=== PATIENT | female | born 2005 | race Caucasian/White ===

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

== ENCOUNTER → 2024-03-23 15:14 | Outpatient (CLI) | payer OTHER, SELFPAY ==
[2024-03-23 17:25] LABS: Add Manual Diff / Slide Review NO; Basophils Absolute Auto 200 /uL (0-100); Eosinophils Absolute Auto 800 /uL (0-450); Eosinophils Percent Auto 6.9 % (2-4); Hematocrit 36.4 % (36-46); Hemoglobin 12.3 g/dL (12.0-16.0); Lymphocytes Absolute Auto 2300 /uL (1100-4500); Lymphocytes Percent Auto 20.2 % (25-40); Mean Corpuscular HGB Conc 33.9 % (30-36); Mean Corpuscular Hemoglobin 24.8 PG (26-34); Mean Corpuscular Volume 73.3 fL (80-100); Monocytes Absolute Auto 1400 /uL (0-900); Monocytes Percent Auto 12.6 % (3-14); Neutrophils Absolute Auto 6600 /uL (1500-7000); Neutrophils Percent Auto 58.3 % (50-75); Platelet Count 853 X10^3/uL (150-400); Red Blood Cell Count 4.97 X10^6/uL (4.0-5.2); Red Cell Distribution Width 14.6 % (11.6-14.8); White Blood Cell Count 11.3 X10^3/uL (4.5-11.0)
[2024-03-23 17:50] LABS: RBC Morphology Normal Morphology
[2024-03-23 17:51] LABS: Iron 29 ug/dL (37-170)
[2024-03-23 17:53] LABS: Erythrocyte Sedimentation Rate 7 MM/HR (0-20)
[2024-03-23 17:55] LABS: Alanine Aminotransferase 11 IU/L (<35); Albumin 4.8 g/dL (3.5-5.0); Albumin Globulin Ratio 1.7 (1.0-2.8); Alkaline Phosphatase 72 U/L (38-126); Aspartate Aminotransferase 22 IU/L (14-36); BUN Creatinine Ratio 18.5 (6-22); Bilirubin Total 1.2 mg/dL (0.2-1.3); Blood Urea Nitrogen 15 mg/dL (7-17); C-Reactive Protein Quant < 0.5 mg/dL (<1.0); Calcium 9.4 mg/dL (8.4-10.2); Carbon Dioxide 25 mmol/L (22-32); Chloride 105 mmol/L (98-107); Estimated Glomerular Filt Rate > 60 mL/min (>60); Globulin 2.8 g/dL (1.7-4.1); Glucose 82 mg/dL (70-100); HEMOLYSIS < 15 (0-50); Potassium 3.7 mmol/L (3.4-5.1); Sodium 138 mmol/L (137-145); Total Protein 7.6 g/dL (6.3-8.2)
[2024-03-23 18:04] LABS: Total Iron Binding Capacity 471 ug/dL (265-497)
[2024-03-23 18:25] LABS: Vitamin D 25 Hydroxy (D3) 44.9 ng/mL (30.0-100.0)
[2024-03-23 18:27] LABS: Ferritin 4 ng/mL (6-137)
== END ==
PROVIDERS: Family Provider Family Medicine; PCP Family Medicine; Referring Provider Naturopath; Visit Provider Naturopath
DX: R10.9 Unspecified abdominal pain (principal)
CPT/HCPCS: 36415; 80053; 82306; 82728; 83540; 83550; 85025; 85651; 86140

== ENCOUNTER → 2024-03-24 09:24 | Outpatient (CLI) | payer OTHER, SELFPAY ==
[2024-03-24 14:48] LABS: Campylobacter Not Detected (Not Detect); Clostridium difficile toxin AB Not Detected (Not Detect); Plesiomonsa shigelloides Not Detected (Not Detect); Salmonella Not Detected (Not Detect)
[2024-03-24 14:49] LABS: Adenovirus F 40/41 Not Detected (Not Detect); Astrovirus Not Detected (Not Detect); Cryptosporidium Not Detected (Not Detect); Cyclospora cayetanensis Not Detected (Not Detect); Entamoeba histolytica Not Detected (Not Detect); Enteroaggregative E.coli Not Detected (Not Detect); Enteropathogenic E.coli Not Detected (Not Detect); Enterotoxigenic E.coli It/st Not Detected (Not Detect); Giardia lamblia Not Detected (Not Detect); Norovirus GI/GII Not Detected (Not Detect); Rotavirus A Not Detected (Not Detect); Sapovirus Not Detected (Not Detect); Shiga-like toxin-prod E.coli Not Detected (Not Detect); Shigella/Enteroinvasive E.coli Not Detected (Not Detect); Vibrio Not Detected (Not Detect); Vibrio cholerae Not Detected (Not Detect); Yersinia enterocolitica Not Detected (Not Detect)
[2024-03-26 11:15] LABS: Fats, Neutral Normal (.); Fats, Total Normal (.); pH, Stool 6.5 (7.0-7.5)
[2024-03-30 14:43] LABS: Calprotectin, Stool 2420 ug/g (0-120)
[2024-03-31 13:13] LABS: Pancreatic Elastase, Fecal 568 (>200)
== END ==
PROVIDERS: Family Provider Family Medicine; PCP Family Medicine; Referring Provider Naturopath; Visit Provider Naturopath
DX: R10.9 Unspecified abdominal pain (principal); R14.0 Abdominal distension (gaseous); R19.7 Diarrhea, unspecified; K92.1 Melena; R11.0 Nausea; R63.0 Anorexia; D72.829 Elevated white blood cell count, unspecified; D69.6 Thrombocytopenia, unspecified; D64.9 Anemia, unspecified; E61.1 Iron deficiency; E55.9 Vitamin D deficiency, unspecified; K51.90 Ulcerative colitis, unspecified, without complications; D58.0 Hereditary spherocytosis
CPT/HCPCS: 82656; 82705; 83993; 87102; 87177; 87507

== ENCOUNTER → 2024-06-24 14:31 | Outpatient (CLI) | payer OTHER, SELFPAY ==
--- NOTE | 2024-06-24 14:35 | DI.RAD.S_ITS ---
PROCEDURE: XR FOOT LT MIN 3V INDICATIONS: SOFT TISSUE MASS TECHNIQUE: 3 views of the foot were acquired. COMPARISON: None. FINDINGS: Bones: There are no osseous abnormalities Joints: The joint spaces are normal in width and alignment without arthritic change. Soft tissues: There is subtle dorsal soft tissue swelling overlying the cuneiform region on lateral view. This is nonspecific. IMPRESSION: Focal dorsal soft tissue swelling over the cuneiform. Suggest MRI for more specific evaluation Dictated by: Remi Sorenson M.D. on 06/25/2024 at 13:21 Approved by: Remi Sorenson M.D. on 06/25/2024 at 13:22
== END ==
LOC: RAD 14:34
PROVIDERS: Family Provider Family Medicine; PCP Family Medicine; Referring Provider Podiatrist Foot & Ankle Surgery; Visit Provider Podiatrist Foot & Ankle Surgery
DX: D48.118 Desmoid tumor of other site (principal); M79.89 Other specified soft tissue disorders
CPT/HCPCS: 73630

== ENCOUNTER → 2024-06-28 13:58 | Outpatient (CLI) | payer OTHER, SELFPAY ==
--- NOTE | 2024-06-28 14:01 | DI.MRI.S_ITS ---
PROCEDURE: MRFOOT LT WO CON INDICATIONS: specified neoplasm uncertain behavior conn-soft TECHNIQUE: Multiphasic, multisequence MRI of the forefoot was performed, without intravenous contrast administration. COMPARISON: None. FINDINGS: Image quality: Excellent. Bones and joints: No bone marrow contusions or metatarsal stress fractures. The sesamoid bones appear in expected positions, without internal edema. No metatarsophalangeal joint degeneration. No intraosseous lesions. Soft tissues: The visualized plantar foot muscles demonstrate normal signal and bulk. Visualized flexor and extensor tendons appear intact, without tenosynovitis. The distal insertions of the peroneus brevis and longus tendons appear intact. The principal Lisfranc ligament appears intact. There is an oval ganglion cyst in soft tissue over dorsal aspect of midfoot at the level of 3rd and 2nd metatarsal bases and measures up to 1.8 x 1.1 x 0.7 cm in size series 5, image 16 and series 7, image 9 . No gross solid appearing soft tissue lesion is noted. Sagittal images demonstrate no evidence for plantar plate tears. IMPRESSION: 1. Finding likely represent 1.8 x 1.1 x 0.7 cm benign ganglion cyst over dorsal aspect of midfoot adjacent to dorsal aspect of 2nd and 3rd metatarsal bases and situated between extensor hallucis longus and extensor digitorum longus tendons. No solid mass is seen. No adjacent tendon or ligament involvement is noted. 2. No marrow signal abnormality. No suspicious intraosseous lesion. No fracture or dislocation. Dictated by: Stuart Kumar M.D. on 06/29/2024 at 14:36 Approved by: Stuart Kumar M.D. on 06/29/2024 at 14:41
== END ==
LOC: MRI 13:59
PROVIDERS: Family Provider Family Medicine; PCP Family Medicine; Referring Provider Podiatrist Foot & Ankle Surgery; Visit Provider Podiatrist Foot & Ankle Surgery
DX: D48.19 Other specified neoplasm of uncertain behavior of connective and other soft tissue (principal)
CPT/HCPCS: 73718

== ENCOUNTER 2024-07-02 13:50 | Emergency (ER) | payer OTHER, SELFPAY ==
[2024-07-02 13:54] VITALS: BP 119/69; PULSE 80; RESP 18; TEMP 36.8; O2SAT 100; BMI 16.2
[2024-07-02] MEDS: PANTOPRAZOLE 40 MG VIAL 80 MG IV (14:36)
[2024-07-02] MEDS: ONDANSETRON 4 MG/2 ML INJ IV (14:36)
[2024-07-02 14:53] VITALS: BP 114/66; PULSE 73; RESP 18; O2SAT 100
[2024-07-02 14:57] LABS: Add Manual Diff / Slide Review NO; Basophils Absolute Auto 300 /uL (0-100); Basophils Percent Auto 4.4 % (0-2); Eosinophils Absolute Auto 900 /uL (0-450); Eosinophils Percent Auto 13.1 % (2-4); Hematocrit 35.1 % (36-46); Hemoglobin 11.8 g/dL (12.0-16.0); Lymphocytes Absolute Auto 1800 /uL (1100-4500); Lymphocytes Percent Auto 24.3 % (25-40); Mean Corpuscular HGB Conc 33.5 % (30-36); Mean Corpuscular Hemoglobin 23.9 PG (26-34); Mean Corpuscular Volume 71.3 fL (80-100); Monocytes Absolute Auto 1100 /uL (0-900); Monocytes Percent Auto 14.6 % (3-14); Neutrophils Absolute Auto 3200 /uL (1500-7000); Neutrophils Percent Auto 43.6 % (50-75); Red Blood Cell Count 4.93 X10^6/uL (4.0-5.2); Red Cell Distribution Width 15.8 % (11.6-14.8); White Blood Cell Count 7.2 X10^3/uL (4.5-11.0)
[2024-07-02 15:02] LABS: Platelet Count 946 X10^3/uL (150-400)
[2024-07-02 15:05] LABS: Prothrombin Time 11.7 SECONDS (9.4-12.5)
[2024-07-02 15:07] LABS: PTT Partial Thromboplastin Tim 34 SECONDS (25.1-36.5)
[2024-07-02 15:09] LABS: Alanine Aminotransferase 10 IU/L (<35); Albumin 4.8 g/dL (3.5-5.0); Albumin Globulin Ratio 1.5 (1.0-2.8); Alkaline Phosphatase 78 U/L (38-126); Aspartate Aminotransferase 21 IU/L (14-36); BUN Creatinine Ratio 14.5 (6-22); Bilirubin Total 1.4 mg/dL (0.2-1.3); Blood Urea Nitrogen 11 mg/dL (7-17); Calcium 9.7 mg/dL (8.4-10.2); Carbon Dioxide 25 mmol/L (22-32); Chloride 105 mmol/L (98-107); Estimated Glomerular Filt Rate > 60 mL/min (>60); Globulin 3.3 g/dL (1.7-4.1); Glucose 89 mg/dL (70-100); HEMOLYSIS < 15 (0-50); Potassium 3.8 mmol/L (3.4-5.1); Sodium 140 mmol/L (137-145); Total Protein 8.1 g/dL (6.3-8.2)
[2024-07-02 15:40] LABS: Platelet Estimate Increased on smear; RBC Morphology Normal Morphology
[2024-07-02 15:44] LABS: Ferritin 4 ng/mL (6-137)
--- NOTE | 2024-07-02 15:58 | ED_ITS ---
HPI - GI Bleed <Danielle Cisneros PA-C - Last Filed: 07/02/24 17:24> General Chief complaint: GI Bleed Stated complaint: dizzy, nausea hx of ulcerative colitis Time Seen by Provider: 07/02/24 15:28 Source: patient Mode of arrival: Ambulatory Related Data Previous Rx's Medication Instructions Recorded Iontophoresis machine #1 ea 08/15/21 ondansetron 4 mg disintegrating 4 mg PO Q8H PRN nausea and 03/19/24 tablet vomiting #30 tabs Allergies Allergy/AdvReac Type Severity Reaction Status Date / Time amoxicillin [AMOXICILLIN] Allergy Mild RASH Verified 03/19/24 12:00 Review of Systems <Danielle Cisneros PA-C - Last Filed: 07/02/24 17:24> Review of Systems Narrative: Negative except as above Gastrointestinal Comments: Nausea, abdominal cramping prior to bowel movements, frequent bowel movements, with blood. History of UC, multiple history of flares. Patient History <Danielle Cisneros PA-C - Last Filed: 07/02/24 17:24> Medical History Thrombocytosis Mild depression Pyelonephritis Social History Smoking Status: Never smoker Smoking Status: Never smoker Substance Use Type: does not use Exam <Danielle iCsneros PA-C - Last Filed: 07/02/24 17:24> Initial Vital Signs Initial Vital Signs: Vital Signs Temperature 98.3 F 07/02/24 13:54 Pulse Rate 80 07/02/24 13:54 Respiratory Rate 18 07/02/24 13:54 Blood Pressure 119/69 07/02/24 13:54 Pulse Oximetry 100 07/02/24 13:54 Oxygen Delivery Method Room Air 07/02/24 13:54 Negative except as above Const General: cooperative, well groomed, ill appearing and other (Thin 19-year-old female appears to not feel well) Eyes General: Yes appearance normal, both eyes and all related structures Pupils: PERRL EOM: EOM intact bilaterally Resp Effort & Inspection: normal respiratory effort, able to speak in complete sentences, no cough, no respiratory distress and no stridor Cardio Rate: regular rate Rhythm: regular rhythm Heart Sounds: S1 normal and S2 normal GI Inspection: normal to inspection Palpation: soft, No guarding, No hepatomegaly, No rigid and tender (Generalized discomfort) Auscultation: hyperactive bowel sounds Skin General: no rashes or lesions noted, warm and other (Pale appears that she does not feel well) Neuro General: patient alert, patient awake, patient oriented x3, oriented and gait normal Cognition: normal cognition Speech: speech normal Gait: normal gait Motor: muscle tone normal throughout and strength 5/5 throughout Extrem Other: Range of motion, strength, pulses, cap refill are preserved in the upper and lower extremities. Patient has a very thin body habitus Psych Appearance: grossly normal and well kempt Mental Status: mental status grossly normal Speech and Movement: speech and movement normal Mood: congruent mood Affect: normal affect Attitude: cooperative Thought Process: normal Thought Content: normal Judgment: judgment good Other: Patient just appears to be really run down, not feeling tremendously well. <Neema Burrell DO - Last Filed: 07/12/24 07:26> Initial Vital Signs Initial Vital Signs: Vital Signs Temperature 98.3 F 07/02/24 13:54 Pulse Rate 80 07/02/24 13:54 Respiratory Rate 18 07/02/24 13:54 Blood Pressure 119/69 07/02/24 13:54 Pulse Oximetry 100 07/02/24 13:54 Oxygen Delivery Method Room Air 07/02/24 13:54 Course <Danielle Cisneros PA-C - Last Filed: 07/02/24 17:24> Orders Ordered: Discontinued Medications Sodium Chloride (Normal Saline 0.9%) 500 mls @ 1,000 mls/hr IV BOLUS ONE Stop: 07/02/24 16:28 Last Infusion: 07/02/24 17:52 Dose: Infused Documented By: Admin: 07/02/24 16:48 Dose: 1,000 mls/hr Documented By: EILEEN Sodium Chloride (Normal Saline 0.9%) 500 mls @ 1,000 mls/hr IV BOLUS ONE Stop: 07/02/24 17:45 Last Infusion: 07/02/24 18:13 Dose: Infused Documented By: Admin: 07/02/24 17:42 Dose: 1,000 mls/hr Documented By: EILEEN Ondansetron HCl (Ondansetron 4 Mg/2 Ml Inj) 4 mg IV NOW PRN PRN Reason: Nausea And Vomiting Last Admin: 07/02/24 14:36 Dose: 4 mg Documented By: MARNIE Ondansetron HCl (Ondansetron 4 Mg Odt) 4 mg SL NOW PRN PRN Reason: Nausea And Vomiting Pantoprazole Sodium (Pantoprazole 40 Mg Vial) 80 mg IV NOW ONE Stop: 07/02/24 14:00 Last Admin: 07/02/24 14:36 Dose: 80 mg Documented By: MARNIE Reevaluation(s) Reevaluation #1: Patient rechecked at 5:15 p.m., she has had a L of fluids, she looks better, she feels better. We will give the patient 1 more L of fluids and then she will be discharged. Vital Signs Vital signs: Vital Signs - 8 hr 07/02/24 13:54 07/02/24 14:53 Temperature 98.3 F Pulse Rate 80 73 Respiratory Rate 18 18 Blood Pressure 119/69 114/66 Pulse Oximetry 100 100 Oxygen Delivery Method Room Air Room Air Reviewed <Neema Burrell DO - Last Filed: 07/12/24 07:26> Orders Ordered: Discontinued Medications Sodium Chloride (Normal Saline 0.9%) 500 mls @ 1,000 mls/hr IV BOLUS ONE Stop: 07/02/24 16:28 Last Infusion: 07/02/24 17:52 Dose: Infused Documented By: Admin: 07/02/24 16:48 Dose: 1,000 mls/hr Documented By: EILEEN Sodium Chloride (Normal Saline 0.9%) 500 mls @ 1,000 mls/hr IV BOLUS ONE Stop: 07/02/24 17:45 Last Infusion: 07/02/24 18:13 Dose: Infused Documented By: Admin: 07/02/24 17:42 Dose: 1,000 mls/hr Documented By: EILEEN Ondansetron HCl (Ondansetron 4 Mg/2 Ml Inj) 4 mg IV NOW PRN PRN Reason: Nausea And Vomiting Last Admin: 07/02/24 14:36 Dose: 4 mg Documented By: MARNIE Ondansetron HCl (Ondansetron 4 Mg Odt) 4 mg SL NOW PRN PRN Reason: Nausea And Vomiting Pantoprazole Sodium (Pantoprazole 40 Mg Vial) 80 mg IV NOW ONE Stop: 07/02/24 14:00 Last Admin: 07/02/24 14:36 Dose: 80 mg Documented By: [facility] Vital Signs Vital signs: Vital Signs - 8 hr 07/02/24 13:54 07/02/24 14:53 Temperature 98.3 F Pulse Rate 80 73 Respiratory Rate 18 18 Blood Pressure 119/69 114/66 Pulse Oximetry 100 100 Oxygen Delivery Method Room Air Room Air MDM - GI Bleed <Danielle Cisneros PA-C - Last Filed: 07/02/24 17:24> Lab Data 07/02/24 14:30 07/02/24 14:30 Labs: Lab Results 07/02/24 Range/Units 14:30 WBC 7.2 (4.5-11.0) X10^3/uL RBC 4.93 (4.0-5.2) X10^6/uL Hgb 11.8 L (12.0-16.0) g/dL Hct 35.1 L (36-46) % MCV 71.3 L (80-100) fL MCH 23.9 L (26-34) PG MCHC 33.5 (30-36) % RDW 15.8 H (11.6-14.8) % Plt Count 946 H* (150-400) X10^3/uL Neut % (Auto) 43.6 L (50-75) % Lymph % (Auto) 24.3 L (25-40) % Bertie % (Auto) 14.6 H (3-14) % Eos % (Auto) 13.1 H (2-4) % Baso % (Auto) 4.4 H (0-2) % Neut # (Auto) 3200 (4436-6549) /uL Lymph # (Auto) 1800 (0912-4324) /uL Bertie # (Auto) 1100 H (0-900) /uL Eos # (Auto) 900 H (0-450) /uL Baso # (Auto) 300 H (0-100) /uL Platelet Estimate Increased on smear RBC Morphology Normal morphology PT 11.7 (9.4-12.5) SECONDS INR 1.0 (0.9-1.3) APTT 34 (25.1-36.5) SECONDS Sodium 140 (137-145) mmol/L Potassium 3.8 (3.4-5.1) mmol/L Chloride 105 (98-107) mmol/L Carbon Dioxide 25 (22-32) mmol/L BUN 11 (7-17) mg/dL Creatinine 0.76 (0.52-1.04) mg/dL Estimated GFR > 60 (>60) mL/min BUN/Creatinine Ratio 14.5 (6-22) Glucose 89 (70-100) mg/dL Calcium 9.7 (8.4-10.2) mg/dL Iron 29 L (37-170) ug/dL Ferritin 4 L (6-137) ng/mL Total Bilirubin 1.4 H (0.2-1.3) mg/dL AST 21 (14-36) IU/L ALT 10 (<35) IU/L Alkaline Phosphatase 78 (38-126) U/L Total Protein 8.1 (6.3-8.2) g/dL Albumin 4.8 (3.5-5.0) g/dL Globulin 3.3 (1.7-4.1) g/dL Albumin/Globulin Ratio 1.5 (1.0-2.8) Blood Type O Positive Antibody Screen Negative Point of Care Testing Test Results Negative Urine Dip Bedside Urine Glucose Negative Bedside Urine Bilirubin - Negative Bedside Urine Ketone +/- 5 Urine Specific [place] 1.030 Bedside Urine Occult Blood - Negative Bedside Urine pH 6.0 Bedside Urine Protein - Negative Bedside Urine Urobilinogen - Negative Bedside Urine Nitrite - Negative Bedside Urine Leukocytes - Negative Esterase MDM Narrative Medical decision making narrative: Patient is a very pleasant 19-year-old female, complex medical history. Known ongoing UC, currently followed by [facility] but the family is currently attempting to make arrangements for her to be seen by GI doctor at the [facility]. She is currently kind of in between GI doctors. Currently has a naturopathic/homeopathic doctor that she seeing for her GI related issues. She presents to the emergency room department with ongoing signs of UC flare, with nausea that is resolved with Zofran. Weight loss 8 lb over the last 2 weeks. Recurrent frequent bowel movements with blood that is noted in her stool. She has had fatigue. She has had some weakness. She has had no syncope, no fevers, no chest pain, no shortness of breath, mild dizziness. She has not felt like eating and has had poor intake orally, she is attempting to do smoothies and protein drinks. Patient is here with her mother, who is just really worried about how run down she is. Patient has used prednisone in the past the 1st time she used prednisone with a UC flare she did have good results however, the patient states the next time she used prednisone her results with the prednisone or poor, and she did not feel that the prednisone actually helped with the flare. 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 Today her platelet counts are quite elevated. Nine hundred forty-six. Mom was worried that she might need a blood transfusion, she is also worried that she might need an iron infusion. Lab work is all within normal limits. The patient CBC patient does not have a white count, her H&H is stable, her platelets were elevated at 946 however, the patient does not have a spleen and her platelet count usually runs anywhere from 452 the highest 700s. CMP electrolytes all within normal limits, liver enzymes are normal, kidney functions normal. Patient is O-positive Urine is negative for infection Patient states she would bleeding from the rectum she has UC I do not feel that a rectal exam is really warranted at this point in time her H&H is stable she does not need a blood transfusion the patient has UC and she states she is bleeding from the rectum I do believe that she is bleeding from the rectum. She has not have any rectal discomfort currently at this time. She has not need a blood transfusion. Currently at this time the patient is receiving IV fluids. Patient's ferritin level is low at 4 An iron level has been added Patient would most likely feels better from iron infusions. Iron infusions would need to be scheduled and arranged through her primary care doctor. I will talk to the patient about possible prednisone upon discharge, depending on what the patient and the patient's mother decide on the prednisone we will then either write a prescription or not. The biggest issue is currently they are in between GI doctors, and her having difficulty with the current doctor they have an are attempting to establish care with a new doctor. I have discussed oral intake, hydration, I have discussed diet with the patient at this ER visit. Patient has Zofran at home for nausea. I have discussed iron supplementation with the patient orally. Patient looks better after 1 L of fluids, a 2 L has been ordered. I have talked with the family and the patient her mother do not want to do any type of steroids, they plan to contact their natural path as well as the GI doctor they are currently working with and discuss a treatment plan. Differential diagnosis UC flare. <Neema Burrell, - Last Filed: 07/12/24 07:26> Lab Data Labs: Lab Results 07/02/24 Range/Units 14:30 WBC 7.2 (4.5-11.0) X10^3/uL RBC 4.93 (4.0-5.2) X10^6/uL Hgb 11.8 L (12.0-16.0) g/dL Hct 35.1 L (36-46) % MCV 71.3 L (80-100) fL MCH 23.9 L (26-34) PG MCHC 33.5 (30-36) % RDW 15.8 H (11.6-14.8) % Plt Count 946 H* (150-400) X10^3/uL Neut % (Auto) 43.6 L (50-75) % Lymph % (Auto) 24.3 L (25-40) % Bertie % (Auto) 14.6 H (3-14) % Eos % (Auto) 13.1 H (2-4) % Baso % (Auto) 4.4 H (0-2) % Neut # (Auto) 3200 (3843-0670) /uL Lymph # (Auto) 1800 (0074-4081) /uL Bertie # (Auto) 1100 H (0-900) /uL Eos # (Auto) 900 H (0-450) /uL Baso # (Auto) 300 H (0-100) /uL Platelet Estimate Increased on smear RBC Morphology Normal morphology PT 11.7 (9.4-12.5) SECONDS INR 1.0 (0.9-1.3) APTT 34 (25.1-36.5) SECONDS Sodium 140 (137-145) mmol/L Potassium 3.8 (3.4-5.1) mmol/L Chloride 105 (98-107) mmol/L Carbon Dioxide 25 (22-32) mmol/L BUN 11 (7-17) mg/dL Creatinine 0.76 (0.52-1.04) mg/dL Estimated GFR > 60 (>60) mL/min BUN/Creatinine Ratio 14.5 (6-22) Glucose 89 (70-100) mg/dL Calcium 9.7 (8.4-10.2) mg/dL Iron 29 L (37-170) ug/dL Ferritin 4 L (6-137) ng/mL Total Bilirubin 1.4 H (0.2-1.3) mg/dL AST 21 (14-36) IU/L ALT 10 (<35) IU/L Alkaline Phosphatase 78 (38-126) U/L Total Protein 8.1 (6.3-8.2) g/dL Albumin 4.8 (3.5-5.0) g/dL Globulin 3.3 (1.7-4.1) g/dL Albumin/Globulin Ratio 1.5 (1.0-2.8) Blood Type O Positive Antibody Screen Negative Point of Care Testing Test Results Negative Urine Dip Bedside Urine Glucose Negative Bedside Urine Bilirubin - Negative Bedside Urine Ketone +/- 5 Urine Specific [place] 1.030 Bedside Urine Occult Blood - Negative Bedside Urine pH 6.0 Bedside Urine Protein - Negative Bedside Urine Urobilinogen - Negative Bedside Urine Nitrite - Negative Bedside Urine Leukocytes - Negative Esterase Discharge Plan Departure Patient Disposition: Home Clinical Impression: Ulcerative colitis Qualifiers: Ulcerative colitis location: unspecified ulcerative colitis location Digestive disease complication type: without complication Qualified Code(s): K51.90 - Ulcerative colitis, unspecified, without complications Activity Restrictions/Additional Instructions: CBC is normal, no white count, H and H is stable, platelets are elevated at 946. Electrolytes all within normal limits, kidney functions within normal limits, liver enzymes are within normal limits. test is negative, urine is negative for infection, O positive. Please follow-up with your GI doctor, please follow-up with your a soaker helper. Ferritin is 4 unchanged from 04/06, iron is 29 unchanged from 04/06 Might want to talk to your primary care doctor about possible iron infusions. This might help with her energy level. Return to the emergency department as needed. Try to stay hydrated. Continue with the Zofran as needed. Prescriptions: No Action (DME) Iontophoresis machine See Rx Instructions .Route .MEDSUPPLY Qty: 1 0RF Rx Instructions: As directed for treatment of hyperhidrosis ondansetron 4 mg tablet,disintegrating 4 mg PO Q8H PRN (Reason: nausea and vomiting) Qty: 30 0RF Referrals: Rj Hoffman MD [Primary Care Provider] - Stand Alone Forms: Patient Portal/API ED Sign-out <Neema Burrell DO - Last Filed: 07/12/24 07:26> Cosign ED Attending Cosignature Attestation: I was immediately available in the department for consultation.
[2024-07-02 16:24] LABS: Iron 29 ug/dL (37-170)
[2024-07-02] MEDS: SODIUM CHLORIDE 0.9% 500 ML 1000 ML IV ×2 (16:48→17:42)
== END 2024-07-02 18:17 | disposition home or self-care (01) ==
PROVIDERS: Emergency Medicine; Emergency Provider Physician Assistant; Family Provider Family Medicine; PCP Family Medicine
DX: K51.90 Ulcerative colitis, unspecified, without complications (principal); R79.89 Other specified abnormal findings of blood chemistry
CPT/HCPCS: 36415; 80053; 81003; 81025; 82728; 83540; 85025; 85610; 85730; 86850; 86900; 86901; 96361; 96374; 96375; 99284; J2405; J2470

== ENCOUNTER 2024-07-05 22:02 | Emergency (ER) | payer OTHER, SELFPAY ==
[2024-07-05 22:08] VITALS: BP 113/69; PULSE 92; RESP 16; TEMP 37.7; O2SAT 99; BMI 16.2
--- NOTE | 2024-07-05 22:19 | ED.CHESTPAIN ---
HPI - Chest Pain General Chief Complaint: Chest Pain Stated Complaint: heart racing, chest tightness,pain Time Seen by Provider: 07/05/24 22:19 Source: patient Mode of arrival: Family Vehicle Limitations: no limitations History of Present Illness HPI narrative: 19-year-old female with history of a splinting due to hereditary spherocytosis, thrombocytosis, ulcerative colitis followed by [facility] gastroenterology, awaiting future consultation with [facility], has had recent flare of her ulcerative colitis with bleeding, seen here recent week, IV fluids given, today noted to have intermittent fast heart rate sensation, palpitations irregular heartbeat sensation. No associated syncope or presyncope symptoms. Some associated shortness of breath. She had not do any particular maneuvers to make the symptoms go away, minutes at a time duration, seemed to go away by itself. Not associated with changes of position. No fevers or chills. No cough shortness of breath independent of these heart racing sensations. Abdominal discomfort typical of her previous ulcerative colitis flares, intermittent bloody stools typical of her intermittent flares. She has not been taking any steroids for her current flare, they have been steroid nonresponsive in the past. She is awaiting consultation for possible outpatient iron infusions, none started yet. She is taking the same immunosuppressive therapy regimens, no change in medications or doses. Related Data Previous Rx's Medication Instructions Recorded Iontophoresis machine #1 ea 08/15/21 ondansetron 4 mg disintegrating 4 mg PO Q8H PRN nausea and 03/19/24 tablet vomiting #30 tabs Allergies Allergy/AdvReac Type Severity Reaction Status Date / Time amoxicillin [AMOXICILLIN] Allergy Mild RASH Verified 03/19/24 12:00 Review of Systems Review of Systems Narrative: see HPI Patient History Medical History Thrombocytosis Mild depression Pyelonephritis Social History Smoking Status: Never smoker Smoking Status: Never smoker Substance Use Type: does not use Exam Narrative Exam Narrative: GENERAL: Well-developed patient, in mild distress. HEAD: Atraumatic. Normocephalic. EYES: Pupils equal round and reactive. Extraocular motions intact. No scleral icterus. No injection or drainage. ENT: Nose without bleeding, purulent drainage. Throat without erythema, tonsillar hypertrophy or exudate. Airway patent. NECK: Trachea midline. Non tender CARDIOVASCULAR: Regular rate and rhythm without murmurs, gallops, or rubs. RESPIRATORY: Clear to auscultation. Breath sounds equal bilaterally. No wheezes, rales, or rhonchi. GASTROINTESTINAL: Abdomen soft, non-tender, nondistended. EXTREMITIES: No edema or joint tenderness. BACK: Nontender without deformity or crepitance. No flank tenderness. NEURO: AOx3. Motor functions grossly nonfocal SKIN: No rash or erythema of visible areas Initial Vital Signs Initial Vital Signs: Vital Signs Temperature 99.9 F H 07/05/24 22:08 Pulse Rate 92 H 07/05/24 22:08 Respiratory Rate 16 07/05/24 22:08 Blood Pressure 113/69 07/05/24 22:08 Pulse Oximetry 99 07/05/24 22:08 Oxygen Delivery Method Room Air 07/05/24 22:08 Course Orders Ordered: ED Orders 07/05/24 22:20 XR chest 1V Stat EKG-12 Lead Stat 07/05/24 23:10 Complete Blood Count AUTO DIFF Stat Comprehensive Metabolic Panel Stat Ethanol (ETOH) Stat HCG Quantitative /Beta subunit Stat Magnesium Stat Troponin & CK Cardiac Panel Stat 07/06/24 00:00 Urine Drug Screen, Rapid Stat 07/06/24 01:45 CT abdomen pelvis w con Stat 07/06/24 01:52 CT angio chest Stat Discontinued Medications Lactated Ringer's (Lactated Ringers) 1,000 mls @ 1,000 mls/hr IV BOLUS ONE Stop: 07/06/24 00:17 Last Infusion: 07/06/24 00:30 Dose: Infused Documented By: Admin: 07/05/24 23:35 Dose: 1,000 mls/hr Documented By: Ondansetron HCl (Ondansetron 4 Mg/2 Ml Inj) 4 mg IV NOW ONE Stop: 07/05/24 23:19 Last Admin: 07/05/24 23:35 Dose: 4 mg Documented By: AB Vital Signs Vital signs: Vital Signs - 8 hr 07/05/24 22:08 07/05/24 22:48 07/05/24 23:00 Temperature 99.9 F H Pulse Rate 92 H 64 73 Respiratory Rate 16 26 H 23 Blood Pressure 113/69 Pulse Oximetry 99 100 100 Oxygen Delivery Method Room Air 07/05/24 23:30 07/05/24 23:32 07/05/24 23:32 Temperature Pulse Rate 62 69 Respiratory Rate 17 19 Blood Pressure 111/68 Pulse Oximetry 99 99 Oxygen Delivery Method 07/06/24 00:00 07/06/24 00:00 07/06/24 00:30 Temperature Pulse Rate 64 Respiratory Rate 24 Blood Pressure 109/66 99/61 Pulse Oximetry 94 Oxygen Delivery Method 07/06/24 00:30 07/06/24 01:00 07/06/24 01:00 Temperature Pulse Rate 70 63 Respiratory Rate 21 14 Blood Pressure 104/62 Pulse Oximetry 100 100 Oxygen Delivery Method 07/06/24 01:30 07/06/24 01:30 07/06/24 01:45 Temperature Pulse Rate 62 Respiratory Rate 8 L Blood Pressure 113/55 L 102/59 L Pulse Oximetry 98 Oxygen Delivery Method 07/06/24 01:45 07/06/24 02:03 07/06/24 02:30 Temperature Pulse Rate 66 79 75 Respiratory Rate 14 22 17 Blood Pressure Pulse Oximetry 99 94 100 Oxygen Delivery Method Room Air Room Air MDM - Chest Pain Lab Data Attestation: I reviewed the patient's lab results. Lab results narrative: White blood cell count 28327 noted, hemoglobin 11.3. Platelets elevated 111,000, history of thrombocytosis noted. BNP unremarkable, potassium not decreased was 3.8. BUN creatinine normal. Liver functions unremarkable. HCG negative. 07/05/24 23:10 07/05/24 23:10 Labs: Lab Results 07/05/24 07/06/24 Range/Units 23:10 00:00 WBC 16.7 H (4.5-11.0) X10^3/uL RBC 4.68 (4.0-5.2) X10^6/uL Hgb 11.3 L (12.0-16.0) g/dL Hct 33.2 L (36-46) % MCV 70.9 L (80-100) fL MCH 24.1 L (26-34) PG MCHC 33.9 (30-36) % RDW 15.4 H (11.6-14.8) % Plt Count 811 H (150-400) X10^3/uL Neut % (Auto) 58.6 (50-75) % Lymph % (Auto) 22.0 L (25-40) % [place] % (Auto) 10.7 (3-14) % Eos % (Auto) 7.8 H (2-4) % Baso % (Auto) 0.9 (0-2) % Neut # (Auto) 9800 H (3297-2409) /uL Lymph # (Auto) 3700 (9658-1643) /uL [place] # (Auto) 1800 H (0-900) /uL Eos # (Auto) 1300 H (0-450) /uL Baso # (Auto) 100 (0-100) /uL Platelet Estimate Increased on smear RBC Morphology See below Poikilocytosis 1+ H Anisocytosis 1+ H Microcytosis 1+ H Sodium 137 (137-145) mmol/L Potassium 3.8 (3.4-5.1) mmol/L Chloride 108 H (98-107) mmol/L Carbon Dioxide 22 (22-32) mmol/L BUN 8 (7-17) mg/dL Creatinine 0.77 (0.52-1.04) mg/dL Estimated GFR > 60 (>60) mL/min BUN/Creatinine Ratio 10.4 (6-22) Glucose 89 (70-100) mg/dL Calcium 9.1 (8.4-10.2) mg/dL Magnesium 1.8 (1.6-2.3) mg/dL Total Bilirubin 1.3 (0.2-1.3) mg/dL AST 24 (14-36) IU/L ALT 11 (<35) IU/L Alkaline Phosphatase 81 (38-126) U/L Total Creatine Kinase 46 (30-135) U/L Troponin I < 0.012 (0.01-0.034) ng/mL Total Protein 7.1 (6.3-8.2) g/dL Albumin 4.3 (3.5-5.0) g/dL Globulin 2.8 (1.7-4.1) g/dL Albumin/Globulin Ratio 1.5 (1.0-2.8) HCG, Quant < 2.39 mIU/mL U Opiates 300ng/mL cut Negative (Negative) Ur Oxycodone Screen Negative (Negative) Urine Methadone Screen Negative (Negative) Ur Barbiturates Screen Negative (Negative) U Tricyclic Antidepress Negative (Negative) Ur Phencyclidine Scrn Negative (Negative) Ur Amphetamines Screen Negative (Negative) U Methamphetamines Scrn Negative (Negative) Ur MDMA Scrn (Ecstasy) Negative (Negative) U Benzodiazepines Scrn Negative (Negative) Urine Cocaine Screen Negative (Negative) U Marijuana (THC) Screen Negative (Negative) Urine pH Normal (Normal) Urine Specific [place] Normal (Normal) Ethyl Alcohol < 10 ( - 10) mg/dL Ur Creatinine Normal (Normal) Imaging Data Chest x-ray: Radiologist's Impression: Close Chest X-Ray (Signed) Caleb Guzman - 07/05/24 Launch?[address] [address] XRay Report Signed Patient: Kirstie Vizcarra MR#: [id number] : 2005 Acct:[id number] Age/Sex: 19 / F Date of Service: 07/05/24 Loc: ED Accession Number: [id number] Procedure: XR chest 1V Ordering Provider: Andreas Galarza MD PROCEDURE: XR CHEST 1V INDICATIONS: chest pain TECHNIQUE: One view of the chest was acquired. COMPARISON: None. FINDINGS: Surgical changes and devices: None. Lungs and pleura: Lungs are clear. No pleural effusions or pneumothorax. Mediastinum: Mediastinal contours appear normal. Heart size is normal. Bones and chest wall: No suspicious bony lesions. Overlying soft tissues appear unremarkable. IMPRESSION: No acute cardiopulmonary abnormality is seen. Dictated by: Caleb Guzman M.D. on 07/05/2024 at 22:53 Approved by: Caleb Guzman M.D. on 07/05/2024 at 22:53 ECG Data Attestation: I personally reviewed and interpreted this ECG as follows: Interpretation: Normal sinus rhythm with rate of 63, no obvious ST segment elevation or depression changes. OR 114, QRS 88, QTC 413. MDM Narrative Medical decision making narrative: 19-year-old female with history of asplenia, hereditary spherocytosis, ulcerative colitis, current ulcerative colitis flare, recent ED visit for which he is given IV fluids, having palpitation and fast heart rate paroxysmal self-limited symptoms intermittent. Normal sinus rhythm on monitor. EKG shows normal sinus rhythm without ischemic changes, normal OR and QRS and QTc intervals, normal QRS and T-wave amplitudes. Labs pending. She feels dehydrated. We will give IV lactated Ringer's. She has some nausea despite home ondansetron, we will give IV ondansetron dose. White blood cell count 82290, other labs unremarkable, hCG negative, LFTs normal, electrolytes and serum CO2 normal, BUN not elevated. Results discussed with patient/mother, elevated white blood cell count, platelets [id number], they would like further imaging to evaluate for pulmonary embolism and problems in the abdomen, this seems low yield, discussed risks of associated radiation, they persist in request for imaging studies. CT angiogram chest PE protocol, with IV only CT abdomen and pelvis imaging. CT abdomen pelvis with IV contrast. Impressions: ?Diffuse circumferential wall thickening of the descending and sigmoid colon compatible with colitis. No pericolonic focal drainable collection or pneumoperitoneum. Peripherally calcified left renal cysts with mural nodularity. Recommend renal mass protocol CT or MRI for further evaluation. Incidental findings as detailed.? See radiology report. Renal cyst finding mentioned to patient/mother, apparently this is known problem, nodules known, serial ultrasounds being done in follow up. Report handed to there. Known ulcerative colitis with recent flare, no perforation or abscess or obstruction changes at this time. Awaiting CTA chest report. CTA chest report, no PE, no acute chest findings. Copy of report given to patient/mother as well History of lack of response to steroids ulcerative colitis, we will hold any steroids for now. Follow up with GI as planned. Regarding palpitation symptoms, consider ZIO or other cardiac monitoring as an outpatient, discussed with PCP. Regarding chest discomfort could consider inhaler but might increased risk of palpitation/dysrhythmia symptoms, hold for now. Regarding chest discomfort if GI/reflux related could consider antacid but she is on chronic immune modulation, acid barrier might be better left untouched to protect against enteric pathogens. Tylenol as needed for discomfort symptoms. Follow up with PCP and with [facility] gastroenterology as planned. Critical Care Time Critical Care Time Critical Care Time: Yes Total Critical Care Time: 35 Attestation: The high probability of a clinically significant, sudden or life threatening deterioration of the [cardiopulmonary, gastrointestinal, abdominopelvic] system(s) required my full and direct attention, intervention and personal management. The aggregate critical care time was [35] minutes. This time is in addition to time spent performing reported procedures but includes the following: [x] Data Review and interpretation [x] Patient assessment and monitoring of vital signs [x] Documentation [x] Medication orders and management Discharge Plan Departure Patient Disposition: Home Clinical Impression: Heart palpitations, Ulcerative colitis, unspecified, Chest discomfort Activity Restrictions/Additional Instructions: Complex medical history including hereditary spherocytosis, asplenia, ulcerative colitis with current flare despite immunosuppressant therapy, no recent change in medications, possible component of dehydration, recent ED visit for IV fluids, awaiting consultation for possible IV iron infusions as an outpatient. Intermittent palpitation and fast heart rate sensation. Normal sinus rhythm on cardiac surgeon and EKG, normal intervals and amplitude on EKG. Troponin normal test results not suggestive of heart attack. IV fluid given. Workup unremarkable. Electrolytes unremarkable. Request for imaging chest abdomen and pelvis. CT scanning of the abdomen showed colitis changes diffuse, consistent with known ulcerative colitis clinically suspected flare, no perforation or obstruction or abscess formation. There was mention of a renal cyst, which apparently is known and is being followed by serial ultrasounds. CT angiogram of the chest showed no blood clots to the lungs or acute chest findings. Consider further workup as an outpatient that might include ZIO patch cardiac monitoring. Contact your regular provider to coordinate ZIO patch or other cardiac monitoring strategy. Could consider use of inhaler but this might precipitate more palpitation symptoms in some patients. Could consider use of antacids but it might be prudent to maintain acid barrier to help protect against enteric pathogens, given chronic a.m. no suppressive therapy for ulcerative colitis. Follow up with your candlemaking laborer as planned, awaiting new consultation with new candlemaking laborer at [facility]. Follow up with PCP next days to help coordinate cardiac monitoring if desired. Further workup as an outpatient for now. Return earlier to this/nearest emergency department for any change worsening symptoms or any concerns prior Prescriptions: No Action (DME) Iontophoresis machine See Rx Instructions .Route .MEDSUPPLY Qty: 1 0RF Rx Instructions: As directed for treatment of hyperhidrosis ondansetron 4 mg tablet,disintegrating 4 mg PO Q8H PRN (Reason: nausea and vomiting) Qty: 30 0RF Referrals: Rj Hoffman MD [Primary Care Provider] - Stand Alone Forms: Patient Portal/API
--- NOTE | 2024-07-05 22:20 | EKG_ITS ---
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
[2024-07-05 22:48] VITALS: PULSE 64; RESP 26; O2SAT 100
--- NOTE | 2024-07-05 22:52 | PC.NURSE ---
Pt diagnosed with Colitis for the last year. Estimated 1 week ago was hydrated with 2 liters of fluids. Pain in left chest is sharp intermittent started last night 07/04/24.
[2024-07-05 23:00] VITALS: PULSE 73; RESP 23; O2SAT 100
[2024-07-05 23:22] LABS: Add Manual Diff / Slide Review NO; Basophils Absolute Auto 100 /uL (0-100); Basophils Percent Auto 0.9 % (0-2); Eosinophils Absolute Auto 1300 /uL (0-450); Eosinophils Percent Auto 7.8 % (2-4); Hematocrit 33.2 % (36-46); Hemoglobin 11.3 g/dL (12.0-16.0); Lymphocytes Absolute Auto 3700 /uL (1100-4500); Mean Corpuscular HGB Conc 33.9 % (30-36); Mean Corpuscular Hemoglobin 24.1 PG (26-34); Mean Corpuscular Volume 70.9 fL (80-100); Monocytes Absolute Auto 1800 /uL (0-900); Monocytes Percent Auto 10.7 % (3-14); Neutrophils Absolute Auto 9800 /uL (1500-7000); Neutrophils Percent Auto 58.6 % (50-75); Platelet Count 811 X10^3/uL (150-400); Red Blood Cell Count 4.68 X10^6/uL (4.0-5.2); Red Cell Distribution Width 15.4 % (11.6-14.8); White Blood Cell Count 16.7 X10^3/uL (4.5-11.0)
[2024-07-05 23:30] VITALS: PULSE 62; RESP 17; O2SAT 99
[2024-07-05 23:32] VITALS: BP 111/68; PULSE 69; RESP 19; O2SAT 99
[2024-07-05 23:32] LABS: Alanine Aminotransferase 11 IU/L (<35); Albumin 4.3 g/dL (3.5-5.0); Albumin Globulin Ratio 1.5 (1.0-2.8); Alkaline Phosphatase 81 U/L (38-126); Aspartate Aminotransferase 24 IU/L (14-36); BUN Creatinine Ratio 10.4 (6-22); Bilirubin Total 1.3 mg/dL (0.2-1.3); Blood Urea Nitrogen 8 mg/dL (7-17); Calcium 9.1 mg/dL (8.4-10.2); Carbon Dioxide 22 mmol/L (22-32); Chloride 108 mmol/L (98-107); Creatine Kinase 46 U/L (30-135); Estimated Glomerular Filt Rate > 60 mL/min (>60); Globulin 2.8 g/dL (1.7-4.1); Glucose 89 mg/dL (70-100); HEMOLYSIS < 15 (0-50); Potassium 3.8 mmol/L (3.4-5.1); Sodium 137 mmol/L (137-145); Total Protein 7.1 g/dL (6.3-8.2)
[2024-07-05] MEDS: ONDANSETRON 4 MG/2 ML INJ IV (23:35)
[2024-07-05] MEDS: LACTATED RINGERS 1,000 ML 1000 ML IV (23:35)
[2024-07-05 23:44] LABS: Troponin I < 0.012 ng/mL (0.01-0.034)
[2024-07-06] VITALS (7 sets, daily range): BP systolic 99–113; BP diastolic 55–66; PULSE 62–79; RESP 8–24; O2SAT 94–100
[2024-07-06 00:07] LABS: Anisocytosis 1+; Microcytosis 1+; Platelet Estimate Increased on smear; Poikilocytosis 1+
[2024-07-06 00:11] LABS: Ethanol (ETOH) < 10 mg/dL; Magnesium 1.8 mg/dL (1.6-2.3)
[2024-07-06 00:28] LABS: HCG Quantitative /Beta subunit < 2.39 mIU/mL
--- NOTE | 2024-07-06 01:45 | DI.CT.S_ITS ---
PROCEDURE: CT ABDOMEN PELVIS W CON INDICATIONS: flare ulcerative colitis, bleeding, WBC 16k, HCG neg TECHNIQUE: After the administration of intravenous contrast, axial sections acquired from the lung bases to the pubic symphysis. Coronal and sagittal reformats were performed. For radiation dose reduction, the following was used: automated exposure control, adjustment of mA and/or kV according to patient size. COMPARISON: [facility], CT, CT ABDOMEN PELVIS W CON, 07/21/2023, 6:49. [facility], CT, CT ABDOMEN PELVIS W CON, 02/07/2022, 1:20. FINDINGS: Image quality: Diagnostic. Lower Chest: No significant findings. ABDOMEN: Liver: No solid mass. Gallbladder: Status post cholecystectomy Biliary ducts: No biliary dilation. Pancreas: Homogeneous enhancement without focal lesions or pancreatic ductal dilatation. No peripancreatic inflammation or organized fluid collections. Spleen: Status post splenectomy Adrenal Glands: No adrenal nodules. Kidneys and Ureters: No hydronephrosis. No solid mass. Left mid pole peripherally calcified cyst in the midpole of the left kidney with a peripheral nodular component (23/series 2). This measures approximately 2.5 cm in size. Nonobstructing 2 mm right midpole intrarenal stone. Punctate nonobstructing left renal stones. Bilateral ureters are normal in course and caliber. No hydroureter. Stomach and Bowel: There is circumferential wall thickening of the descending colon and sigmoid colon. No evidence for perforation or abscess formation. No evidence for small bowel obstruction or associated inflammatory changes. The appendix is not definitively visualized. However, no secondary findings of acute inflammation are noted in the right lower quadrant. Peritoneum: No abnormal intraperitoneal fluid. No free air. Ventral Wall: No significant ventral hernia. Abdominal Nodes: No retroperitoneal or mesenteric adenopathy by size criteria. Vessels: Aorta and inferior vena cava are normal in size. PELVIS: Pelvic Organs: Unremarkable. Bladder: No bladder wall thickening, accounting for underdistention. Pelvic Nodes: No enlarged lymph nodes. Miscellaneous: No inguinal hernias are seen. Bones: No aggressive osseous abnormality. Visualized osseous structures appear intact without acute fracture or focal destructive lesion. No acute compression fractures of the imaged spine. IMPRESSION: Diffuse circumferential wall thickening of the descending and sigmoid colon compatible with colitis either infectious or inflammatory in etiology. No evidence for perforation or abscess formation. Peripherally calcified 2.5 cm left renal cyst with associated mural nodularity. Recommend dedicated renal mass protocol CT or MRI for further characterization. Other chronic findings as above. No significant discrepancy with the night cleaner radiology preliminary report. Dictated by: Josh Mccracken M.D. on 07/06/2024 at 7:36 Approved by: Josh Mccracken M.D. on 07/06/2024 at 7:41
--- NOTE | 2024-07-06 01:52 | DI.CT.S_ITS ---
PROCEDURE: CT ANGIO CHEST PE PROTOCOL INDICATIONS: PE protocol, Chest pain, hx platelets 800k TECHNIQUE: After the administration of intravenous contrast, 2 mm thick sections acquired from the pulmonary apices to the posterior costophrenic angles. 3-dimensional maximum intensity projection (MIP) coronal and sagittal reformats were then acquired through the thorax. For radiation dose reduction, the following was used: automated exposure control, adjustment of mA and/or kV according to patient size. COMPARISON: None. FINDINGS: Image quality: Diagnostic. Pulmonary arteries: Pulmonary arteries are normal in size, and demonstrate no intraluminal filling defects to suggest central pulmonary embolism. Lower Neck: No enlarged lymph nodes. Thyroid: No thyroid nodules which require sonographic follow up, per consensus guidelines. Axillae: No enlarged lymph nodes. Chest Wall: Unremarkable. Bones: Visualized osseous structures appear intact without acute fracture or focal destructive lesion. No acute compression fractures of the imaged spine.. Lungs and Pleura: No pneumothorax or pleural effusions. No consolidation or suspicious nodules. Heart: Heart size is normal. No pericardial effusion. Thoracic Vessels: No aortic aneurysm. Mediastinum and [place]: No enlarged lymph nodes. Esophagus: No wall thickening. No hiatal hernia. Upper Abdomen: Status post cholecystectomy. Peripherally calcified midpole left renal cyst measuring 2.5 cm. Status post splenectomy. IMPRESSION: No pulmonary embolus. No acute cardiopulmonary process. Calcified midpole left renal cyst. Please see separate CT abdomen/pelvis report for further details. No significant discrepancy with the entry level chemist radiology preliminary report. Dictated by: Josh Mccracken M.D. on 07/06/2024 at 7:29 Approved by: Josh Mccracken M.D. on 07/06/2024 at 7:35
[2024-07-06 02:03] LABS: Ur Creatinine Normal (Normal); Ur Specific Gravity Normal (Normal); Urine Amphetamines Negative (Negative); Urine Barbiturates Negative (Negative); Urine Benzodiazepines Negative (Negative); Urine Cocaine Negative (Negative); Urine MDMA Negative (Negative); Urine Methadone Negative (Negative); Urine Methamphetamines Negative (Negative); Urine Opiates Negative (Negative); Urine Oxycodone Negative (Negative); Urine Phencyclidine Negative (Negative); Urine THC Negative (Negative); Urine Tricyclic Antidepressant Negative (Negative); Urine pH Normal (Normal)
== END 2024-07-06 02:57 | disposition home or self-care (01) ==
PROVIDERS: Emergency Provider Emergency Medicine; Family Provider Family Medicine; PCP Family Medicine
DX: R00.2 Palpitations (principal); R07.9 Chest pain, unspecified; K51.90 Ulcerative colitis, unspecified, without complications; R79.89 Other specified abnormal findings of blood chemistry
CPT/HCPCS: 36415; 71045; 71275; 74177; 80053; 80305; 80320; 82550; 83735; 84484; 84702; 85025; 93005; 93010; 96361; 96374; 99284; J2405; Q9967

== ENCOUNTER → 2024-07-13 15:03 | Outpatient (CLI) | payer OTHER, SELFPAY ==
[2024-07-13 17:39] LABS: Hematocrit 36.8 % (36-46); Hemoglobin 12.3 g/dL (12.0-16.0)
[2024-07-13 17:42] LABS: HEMOLYSIS < 15 (0-50); Iron 23 ug/dL (37-170)
[2024-07-13 17:54] LABS: Percent Iron Saturation 5 % (15-50); Total Iron Binding Capacity 469 ug/dL (265-497); Transferrin 386 mg/dL (206-381)
[2024-07-13 18:19] LABS: Ferritin 5 ng/mL (6-137)
[2024-07-13 18:50] LABS: Folate 5.6 ng/mL (2.76-20.0); Vitamin B12 531 pg/mL (239-931)
== END ==
PROVIDERS: Family Provider Family Medicine; PCP Family Medicine; Referring Provider Family Medicine; Visit Provider Family Medicine
DX: D62 Acute posthemorrhagic anemia (principal); D50.9 Iron deficiency anemia, unspecified
CPT/HCPCS: 36415; 82607; 82728; 82746; 83540; 83550; 85014; 85018

== ENCOUNTER 2024-08-24 08:08 | Day surgery (SDC) | payer OTHER, SELFPAY ==
[2024-08-18 10:39] VITALS: BMI 16.5
--- NOTE | 2024-08-24 | PATH_ITS ---
[facility] Accession Number: [id number] No. of containers..01 Tissue . 01 Material submitted: . foot - LEFT FOOT MASS . 01 Diagnosis: LEFT FOOT MASS, EXCISION: Schwannoma (benign peripheral nerve sheath tumor); please see microscopic description. Negative for atypia and malignancy. [facility] 08/27/2024 1051 Local . 01 Electronically signed: . Sukhdev Hui MD, Pathologist NPI- [id number] . 01 Gross description: . LEFT FOOT MASS: Received in formalin is 1 fragment of alvarez soft tissue measuring 2.0 x 1.2 x 0.9 cm. Tissue is inked. Specimen is sectioned and submitted in its entirety in 2 cassettes. /[facility] 08/25/2024 0119 Local . 01 Microscopic: . Microscopic examination of the foot mass reveals an encapsulated proliferation of bland spindle cells with cellular fibrillary areas (Eladio A) and paucicellular areas (Eladio B) There are also paucinuclear areas surrounded by clusters of nuclei (Verocay bodies). Thick-walled blood vessels are also present. There is no apparent nuclear atypia, distinct mitotic activity, or necrosis. . To better evaluate the spindle cell proliferation immunostains were performed with the following results: S-100 is diffuse, uniform strong positive, this result supports origin from nerve. Smooth muscle actin and desmin are negative on the spindle cells, arguing against muscular differentiation. The proliferation marker Ki-67 is low, approximately 1%. . In summary, the histologic features along with immunohistochemical studies support the diagnosis of Schwannoma. Negative for atypia or malignancy. . . * This test was developed and the performance characteristics were validated by [employer] [employer]. It has not been cleared or approved by the U.S. Food and Drug Administration. . 01 Pathologist provided ICD-10: D36.11 . 01 CPT . 983841, R71284, G37157 Specimen Comment: A courtesy copy of this report has been sent to [facility] Pathology Performed at: [address] [id number] MD Charlie Roman MD Phone: [phone]
--- NOTE | 2024-08-24 06:31 | PM.HP.1 ---
History of Present Illness History of Present Illness Chief complaint: Left soft tissue mass removal Narrative: 19 year old female here for left foot soft tissue mass. She has discomfort and pain in the foot due to a growth that has been present for a few years. She reports that the growth started small and was not bothersome initially, but has now become uncomfortable and painful when wearing shoes. In general, she experiences pain when pressure is applied to the growth. Obtained MRI is consistent with the diagnosis. Patient hope to get it done before moving. Patient denies n/v/f/c/sob/cp. PFSH Medical History (Updated 08/18/24 @ 10:52 by Jesenia Adhikari RN) IBS (irritable bowel syndrome) Pyelonephritis Thrombocytosis Surgical History (Updated 08/18/24 @ 10:52 by Jesenia Adhikari RN) History of splenectomy Social History Smoking Status: Never smoker Meds Home Medications and Allergies Home Medications Medication Instructions Recorded Confirmed Type Iontophoresis machine #1 ea 08/15/21 07/13/24 Rx ondansetron 4 mg disintegrating 4 mg PO Q8H PRN nausea and 03/19/24 07/13/24 Rx tablet vomiting #30 tabs ferrous gluconate 324 mg (37.5 mg 324 mg PO DAILY #90 tabs 07/13/24 07/13/24 Rx iron) tablet Allergies Allergy/AdvReac Type Severity Reaction Status Date / Time amoxicillin [AMOXICILLIN] Allergy Mild RASH Verified 07/13/24 14:33 Exam Skin Other: left dorsal central foot: firm, nodular, and mobile over EDL tendons measuring 2 x 1 cm. Assessment & Plan Assessment & Plan narrative: 1. Left foot ganglion cyst Patient seen and evaluated. Surgical plan: left foot ganglion cyst removal. Risks and benefits of the procedure discussed with all questions answered to patient's satisfaction. Reviewed potential complications that may include but not limited to the following: DVT, failure to resolve all symptoms, infection, nerve injury, bleeding, recurrence, or wound. Reviewed surgical technique and general aftercare protocols. All questions answered to patient's satisfaction with no guarantees made. Patient verbalized understanding and agreed with surgical plan. RTC for post-op. Time-Based Coding :: [TOTAL MINUTES] spent with patient and on the chart (including review of chart, obtaining history, exam, reviewing outside data, placing orders, documenting exam and treatment plan, and counseling patient) on [DATE].
--- NOTE | 2024-08-24 06:39 | PM.PREOP ---
Pre-operative Note Interval Note History & Physical reviewed/Exam performed by Physician: Yes Changes to H&P: No
[2024-08-24 08:34] VITALS: BP 108/68; PULSE 65; RESP 18; TEMP 36.7; O2SAT 100; BMI 16.5
[2024-08-24] MEDS: LACTATED RINGERS 1,000 ML 42 ML IV (08:59)
[2024-08-24] MEDS: CLINDAMYCIN 600 MG/50 ML PIGGYBACK 50 MG IV (10:09)
[2024-08-24] MEDS: LIDOCAINE 1% 20 ML 3 ML SUBCUT (10:22)
--- NOTE | 2024-08-24 10:33 | SUR.OPER ---
Supine on padded OR bed, head on pillow, arms secured on padded arm boards at <90 degrees abduction, legs uncrossed, safety belt at thigh, tape over blanket over lower legs.
[2024-08-24] MEDS: BUPIVACAINE 0.5% (PF) 30 ML VIAL INJ (10:44)
[2024-08-24 11:12] VITALS: BP 98/67; PULSE 87; RESP 12; TEMP 36.9; O2SAT 100
[2024-08-24 11:16] VITALS: BP 100/65; PULSE 74; RESP 12; O2SAT 100
[2024-08-24 11:23] VITALS: BP 99/62; PULSE 78; RESP 12; TEMP 36.7; O2SAT 100
[2024-08-24 11:28] VITALS: BP 106/70; PULSE 84; RESP 12; O2SAT 100
[2024-08-24 11:32] VITALS: BP 107/65; PULSE 87; RESP 14; O2SAT 100
--- NOTE | 2024-08-25 21:59 | P.OP_ITS ---
Operative Date/Time/Diagnoses Date of procedure: 08/24/24 Pre-op diagnosis: 1. Left foot ganglion cyst Post-op diagnosis: same Procedure & Clinicians Procedure: 1. Left foot soft tissue mass removal Same procedure as scheduled: Yes Indications: Progressive pain and discomfort. Surgeon: Cecilio Dangelo Click Yes if Unassisted: Yes Anesthesia Type: General Operative Notes Findings: Consistent with diagnosis. Closure Type: primary Specimen(s): other (Soft tissue mass, measuring 2 x 1 cm. ) Estimated Blood Loss (mL): 5 Tourniquet time (min): 23 Procedure in detail: Patient was identified and transferred onto operating table from [facility] in supine position. General anesthesia was administered in operating room. Local block was injected proximal to the lesion using 3 cc 1% lidocaine plain. A 18 inch ankle tourniquet was applied and set to 200 mmHg for duration of the case. Surgical limb was prepped and draped in the usual sterile fashion, followed by official timeout with surgical team all in agreement. Attention was directed dorsal left foot. An linear incision was made using # 15 scalpel, and dissection was deepened to the level of soft tissue mass. Care was take to protect surrounding neruvoascular structures. A metzenbaum scissor was used remove the entire well-capsulated, firm, and translucent cyst, which was sent to pathology for gross evaluation. Procedure with was then irrigated with copious saline and closed from deep to superficial using 4-0 vicryl, 4-0 monocryl, and 4-0 prolene. 10 mg of methylprednisolone and 7 cc of 0.5% marcaine plain was administered. Surgical site was cleaned and dried, followed by sterile dressing using iodine soaked Adaptic, gauze, abdominal pad, Kerlix, and GAIL bandage. Patient tolerated procedure without complication and was transferred to post- anesthesia care unit with all vital signs stable. Complications: none Post-operative Condition: stable Disposition: same day surgery Plan for aftercare: Limited partial weight bearing to heel in post-op shoe. Elevate surgical limb above heart. Ice behind knee.
== END 2024-08-24 11:46 | disposition home or self-care (01) ==
PROVIDERS: Family Provider Family Medicine; PCP Family Medicine; Referring Provider Podiatrist Foot & Ankle Surgery; Visit Provider Podiatrist Foot & Ankle Surgery
PROC: (CPT 28090; principal; 2024-08-24 09:45)
DX: D36.10 Benign neoplasm of peripheral nerves and autonomic nervous system, unspecified (principal)
CPT/HCPCS: 28090; 81025; J1100; J1885; J2405; J2704; J2919; J3010

== ENCOUNTER → 2025-10-04 08:45 | Outpatient (CLI) | payer OTHER, SELFPAY ==
--- NOTE | 2025-10-04 08:47 | DI.CT.S_ITS ---
PROCEDURE: CT ABDOMEN RENAL PROTOCOL INDICATIONS: 20 y/o F w/ a 2.5cm left calcified renal cyst TECHNIQUE: Optional 5 mm thick noncontrast images acquired from the diaphragm to the iliac crests. After the administration of intravenous contrast, 5 mm thick images again acquired from the diaphragm to the iliac crests in the arterial and urographic phases. 5 mm thick coronal and sagittal reformats were then acquired. For radiation dose reduction, the following was used: automated exposure control, adjustment of mA and/or kV according to patient size. COMPARISON: [facility], CT, CT ABDOMEN PELVIS W CON, 11/20/2019, 22:49. [facility], CT, CT ABDOMEN PELVIS W CON, 07/06/2024, 1:55. FINDINGS: Image quality: Diagnostic. Kidneys and Ureters: Again seen is the complex cystic lesion on the superior pole of the left kidney. The lesion is multiloculated, containing layering calcifications. Decreased nodularity compared with prior, with very mild residual septal thickening measuring 0.5 x 0.7 centimeter (series 6, image 92). The right kidney is unremarkable. OTHER: Lower chest: Unremarkable. Liver: No solid mass. Gallbladder: Absent. Biliary ducts: No biliary dilation. Pancreas: No ductal dilation. Spleen: Absent. Adrenal Glands: No adrenal nodules. Stomach and Bowel: Normal colonic caliber, without significant wall thickening. Peritoneum: No abnormal intraperitoneal fluid. No free air. Ventral Wall: No hernia. Abdominal Nodes: No retroperitoneal or mesenteric adenopathy by size criteria. Vessels: Aorta and inferior vena cava are normal in size. Bones: No aggressive osseous abnormality. IMPRESSION: Multiloculated cystic lesion on the superior pole of the left kidney, with decreased nodularity compared with 07/06/2024. This cystic lesion is likely a sequela remote infection noted on CTs dated 05/28/2023 and 07/19/2020. The presence of thickened internal septation may warrant additional follow-up in 6-12 months, depending on the provider's discretion. MRI is preferred over CT, and single phase CT can be utilized for comparison. Dictated by: Caleb Guzman M.D. on 10/04/2025 at 11:41 Approved by: Caleb Guzman M.D. on 10/04/2025 at 11:49
[2025-10-04 09:13] LABS: Estimated Glomerular Filt Rate > 60 mL/min (>60)
== END ==
LOC: CT 08:46
PROVIDERS: Family Provider Family Medicine; PCP Family Medicine; Referring Provider Urology; Visit Provider Urology
DX: N28.1 Cyst of kidney, acquired (principal); Z90.49 Acquired absence of other specified parts of digestive tract
CPT/HCPCS: 36415; 74170; 82565; Q9967